=== PATIENT | female | born 1945 | race Caucasian/White ===

== ENCOUNTER 2017-03-03 11:38 | Emergency (ER) | payer MEDICARE, OTHER ==
[2017-03-03 11:53] VITALS: BP 154/79
--- NOTE | 2017-03-03 12:20 | EDM.PDOC ---
[id number]: FELL ON BACK, TROUBLE BREATHING Time Seen by Provider: 03/03/17 12:10 Source of Information: Reports: Patient, Family History Limitations: Reports: No limitations - History of Present Illness INITIAL COMMENTS - FREE TEXT/NARRATIVE: 71-year-old female slipped and fell backwards striking her left flank on the corner of a concrete stair. She had no loss of consciousness but she is not short of breath, having pleuritic pain, pain with swallowing and movement. No head injury or neck pain. Denies abdominal pain. She is otherwise healthy. Onset: sudden Duration: Hour(s): (One hour ago) Location: Reports: chest (Left flank area), back Severity: moderate Worsens with: Reports: Breathing, Movement Associated Symptoms: Denies: confusion, cough, diaphoresis, fever/chills, headaches, malaise, nausea/vomiting, weakness Left Upper Back Pain Score (Numeric/FACES): 8 - Related Data Allergies Allergy/AdvReac Type Severity Reaction Status Date / Time bacitracin Allergy Cannot Verified 03/03/17 11:55 Remember doxycycline Allergy Swollen Verified 03/03/17 11:55 Tongue Home Meds: Home Meds Cholecalciferol (Vitamin D3) [Vitamin D3] 1 tab PO DAILY 03/03/17 [History] Cyanocobalamin (Vitamin B12) [Vitamin B12] 1 tab PO DAILY 03/03/17 [History] Ubidecarenone [Co Q-10] 1 tab PO DAILY 03/03/17 [History] Past Medical History [employer] History: Reports: Polycystic Ovaries - Past Surgical History Dermatological Surgical History: Reports: Plastic surgical reconstruction/repair Social & Family History - Family History Family Medical History: Noncontributory - Tobacco Use Smoking Status *Q: Current Every Day Smoker Years of Tobacco use: 40 Packs/Tins Daily: 0.5 - Caffeine Use Caffeine Use: Reports: Coffee - Alcohol Use Days Per Week of Alcohol Use: 2 Number of Drinks Per Day: 3 Total Drinks Per Week: 6 - Recreational Drug Use Recreational Drug Use: No ED ROS GENERAL - Review of Systems Review Of Systems: See Below Constitutional: Denies: fever, chills HEENT: Reports: No symptoms Respiratory: Reports: Shortness of Breath, Pleuritic Chest Pain GI/Abdominal: Denies: Abdominal pain : Reports: no symptoms Musculoskeletal: Reports: back pain Skin: Reports: no symptoms Neurological: Denies: Headache Psychiatric: Reports: No symptoms ED EXAM, GENERAL - Physical Exam Exam: See Below Exam Limited By: No limitations General Appearance: alert, moderate distress (Very uncomfortable with any movement of the upper body) Respiratory/Chest: no respiratory distress, lungs clear, other (A small amount of swelling over the left flank with exquisite tenderness to palpation, no definite crepitus) Course - Vital Signs Last Recorded V/S: Last Vital Signs Temp 97.4 F 03/03/17 11:40 Pulse 65 03/03/17 11:40 Resp 14 03/03/17 11:40 BP 154/79 H 03/03/17 11:40 Pulse Ox 98 03/03/17 11:40 - Re-Assessments/Exams Free Text/Narrative Re-Assessment/Exam: 03/03/17 12:19 Patient likely has rib fractures, she'll be run through the CT scan of the chest without contrast because of the dyspnea and painful swallowing. 03/03/17 13:04 CT confirmed at least 3 rib fractures in the left posterior chest. No significant pneumothorax or contusion. A copy of the CT scan was given to the patient, 2 six-inch Shay wrap is to wear for support while awake and 15 Tylenol number threes for extra pain control. It's very important that she have a recheck in the near future to assess for pneumothorax or recheck anytime symptoms worsen. Departure - Departure Time of Disposition: 13:22 Disposition: Home, Self-Care 01 Condition: fair Clinical Impression: Multiple fractures of ribs Qualifiers: Encounter type: initial encounter Fracture type: closed Laterality: left Qualified Code(s): S22.42XA - Multiple fractures of ribs, left side, initial encounter for closed fracture Instructions: Rib Fracture Referrals: PCP,None [Primary Care Provider] - Forms: ED Department Discharge Care Plan Goals: Take ibuprofen or naproxen for pain and add Tylenol #3 if needed. Okay to wear Shay wrapping while awake, concentrating on taking full breaths. Consider recheck in 2-3 days, or sooner if you feel you are worsening.
--- NOTE | 2017-03-03 13:04 | CT ---
Chest CT. History: Trauma. Left posterior chest pain. Technique: Unenhanced axial images were obtained from the lung apices extending through the abdomen and pelvis. Coronal images were reconstructed. Total DLP: 370. Findings: There are multiple left-sided rib fractures. There are fractures involving the posterior l ateral aspects of the fourth-seventh ribs. There is no evidence of significant pneumothorax. There a re few small tiny subpleural air bubbles at the site of the fractures. There is mild pleural thicken ing at the site of the fractures. There is no pleural effusion. There is mild dependent atelectasis. The mediastinal structures are unremarkable. Limited evaluation of the upper abdomen demonstrates n o acute findings. Impression: 1. Fractures of the left-4 the seventh ribs. No evidence for significant pneumothorax or effusion at this time.
== END 2017-03-03 13:22 | disposition home or self-care (01) ==
LOC: JP.ED 11:38
DX: S22.42XA Multiple fractures of ribs, left side, initial encounter for closed fracture (principal); F17.210 Nicotine dependence, cigarettes, uncomplicated; Z88.1 Allergy status to other antibiotic agents; Z88.8 Allergy status to other drugs, medicaments and biological substances; Z79.899 Other long term (current) drug therapy; W22.8XXA Striking against or struck by other objects, initial encounter
CPT/HCPCS: 71250; 71250-26; 99283; 99284